=== PATIENT | female | born 1985 | race Caucasian/White ===

== ENCOUNTER 2017-10-18 19:18 | Emergency (ER) | payer OTHER ==
--- NOTE | 2017-10-18 19:40 | CPEKG ---
Heart Rate: 98 RR Interval: 612 P-R Interval: 148 QRSD Interval: 82 QT Interval: 332 QTC Interval: 424 P [place]: 81 QRS [place]: 42 T Wave [place]: 24 EKG Severity - BORDERLINE ECG - EKG Impression: SINUS RHYTHM EKG Impression: INFERIOR Q WAVES, PROBABLY NORMAL VARIATION Electronically Signed By: Shashank Choudhury 18-Oct-2017 20:23:13
[2017-10-18] MEDS ORDERED: HYDROmorphONE/DILAUDID 2 MG/ML INJ IVP ONE (19:53)
[2017-10-18] MEDS ORDERED: ACETAMINOPHEN 325 MG TAB PO ONE (19:53)
[2017-10-18] MEDS ORDERED: KETOROLAC 30 MG/1 ML SDV IVP ONE (19:53)
--- NOTE | 2017-10-18 19:56 | EDPHY ---
H & P Time Seen by Provider: 10/18/17 19:36 HPI/ROS: CHIEF COMPLAINT: Bilateral neck pain HISTORY OF PRESENT ILLNESS: Patient started working out with weights about a week and half ago. Approximately 6 days ago started getting pain in the back of her neck radiating to both ears and then around to the front of her neck and jaw. She had a massage and felt a lot better on Saturday and Saturday and in fact was relatively asymptomatic , but then yesterday afternoon symptoms came back. Since then she has had bilateral neck pain which radiates anteriorly to her front of her neck and jaw. Severe and worse with palpation but not really affected by motion. No stiff neck. No weakness or numbness in arms associated. It radiates down into her anterior chest and she says it feels muscular. Symptoms severe tonight and not affected by Motrin that she took around mid day. No dental symptoms, no trouble breathing or swallowing. Her bilateral ear pain is a little bit better now. REVIEW OF SYSTEMS: Eye: no change in vision ENT: no sore throat Cardiac: no chest pain or syncope Pulmonary: no cough or SOB Abdomen: no vomiting, diarrhea, abdominal pain Musculoskeletal: HPI Skin: no rash or zoster Neuro: no headache, she definitely says that her pain is all below her head. No frontal forehead or pain in her cheek. Constitutional: no fever : no urinary symptoms A comprehensive 10 point review of systems is otherwise negative aside from elements mentioned in the history of present illness. PAST MEDICAL HISTORY: Negative, has a [id number] Social history: Here with mom, no IV drugs General Appearance: Alert and conversant, cooperative. Eyes: No scleral icterus. Pupils equal and reactive extraocular motion intact. No proptosis. No periorbital swelling. ENT, Mouth: Normal mucous membranes. No trismus. Normal pharynx. Uvula midline. No sinus tenderness to palpation. No facial redness or swelling. Normal tympanic membranes bilaterally. Respiratory: Normal respiratory effort, breath sounds equal, lungs are clear to auscultation. Cardiovascular: Regular rate and rhythm. Gastrointestinal: Abdomen is soft and non tender. Neurological: Alert, face symmetric, normal motor and sensory in extremities. 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 Skin: Warm and dry, no rashes. No evidence of redness or zoster. Musculoskeletal: No meningeal signs or neck stiffness, good forward range of motion. She does have significant muscular tenderness to palpation in both trapezius areas. Psychiatric: Not agitated. Emergency Department course/MDM: I-STAT and CT angio for dissection discussed and consented with severity of symptoms. I think it is unlikely that she has tonsillitis or retropharyngeal abscess, epiglottitis, meningitis, acute coronary syndrome, sinusitis, otitis media, subarachnoid hemorrhage. Dilaudid 0.5, Toradol 15, Tylenol 650. Patient said she had a particularly bad wave of pain causing nausea and lightheadedness at this time vital signs were taken and I think that the blood pressure being low is more likely vasovagal, she was also diaphoretic on arrival. 2123: CT reviewed with Felipe, has thymus versus mediastinal venous hemorrhage otherwise negative. Does not have dissection or any other neck abnormality. 7: Case discussed, and images reviewed with Ko CT surgery on computer system. His opinion is more likely to be thymus, no action or further imaging recommended. Vasculature normal, no reason or source seen for bleeding. Results discussed in detail at this time, I recommend symptomatic treatment and outpatient follow-up, she does feel better pain is not completely gone but she is in agreement with the plan. Smoking Status: Never smoked Constitutional: Initial Vital Signs Temperature (C) 36.5 C 10/18/17 19:27 Heart Rate 81 10/18/17 19:27 Respiratory Rate 16 10/18/17 19:27 Blood Pressure 75/33 L 10/18/17 19:27 O2 Sat (%) 100 10/18/17 19:27 O2 Delivery Mode Room Air Allergies/Adverse Reactions: No Known Allergies Allergy (Unverified 10/18/17 19:31) Home Medications: Medication Instructions Recorded Cryselle-28 Tablet 10/18/17 oxyCODONE/APAP 5/325 [Percocet] 1 tab PO Q4-6PRN PRN #7 tab 10/18/17 Medical Decision Making - Diagnostics EKG Interpretation: 12-lead EKG interpreted by me; official reading is in trace master. My interpretation is sinus rhythm rate 98 with inferior Q-waves noted, no ischemic changes. Imaging Results: Imaging Impressions Neck CTA 10/18/17 20:14 Impression: 1. Amorphous soft tissue density in the superior mediastinum which could related to thymus or less likely hematoma. 2. No acute vascular findings. Stenoses are calculated using [place] Symptomatic Carotid Endarterectomy Trial (NASCET) criteria. Findings discussed with RADHA DODOSN 10/18/2017 at 21:26. - Data Points Laboratory Results: 10/18/17 19:58 POC Hgb 14.3 gm/dL gm/dL (12.6-16.3) POC Hct 42 % % (38-47) POC Sodium 139 mEq/L mEq/L (135-145) POC Potassium 3.6 mEq/L mEq/L (3.3-5.0) POC Chloride 101 mEq/L mEq/L (97-110) POC BUN 7 mg/dL mg/dL (7-23) POC Creatinine 0.9 mg/dL mg/dL (0.6-1.0) POC Glucose 114 mg/dL H mg/dL (70-100) Medications Given: Discontinued Medications Acetaminophen (Tylenol) 650 mg PO EDNOW ONE Stop: 10/18/17 19:54 Last Admin: 10/18/17 20:31 Dose: 650 mg Hydromorphone HCl (Dilaudid) 0.5 mg IVP EDNOW ONE Stop: 10/18/17 19:54 Last Admin: 10/18/17 20:31 Dose: 0.5 mg Sodium Chloride (Ns) 1,000 mls @ 0 mls/hr IV EDNOW ONE; Wide Open PRN Reason: Protocol Stop: 10/18/17 19:59 Last Admin: 10/18/17 20:30 Dose: 1,000 mls Sodium Chloride (Ns) 1,000 mls @ 0 mls/hr IV EDNOW ONE; Wide Open PRN Reason: Protocol Stop: 10/18/17 19:59 Last Admin: 10/18/17 20:30 Dose: 1,000 mls Ketorolac Tromethamine (Toradol) 15 mg IVP EDNOW ONE Stop: 10/18/17 19:54 Last Admin: 10/18/17 20:31 Dose: 15 mg Oxycodone/Acetaminophen (Percocet 5/325mg Prepack#4) 1 btl TAKEHOME EDNOW ONE Stop: 10/18/17 21:42 Last Admin: 10/18/17 21:52 Dose: 1 btl Point of Care Test Results: Chemistry 10/18/17 19:58 POC Sodium 139 mEq/L mEq/L (135-145) POC Potassium 3.6 mEq/L mEq/L (3.3-5.0) POC Chloride 101 mEq/L mEq/L (97-110) POC BUN 7 mg/dL mg/dL (7-23) POC Creatinine 0.9 mg/dL mg/dL (0.6-1.0) POC Glucose 114 mg/dL H mg/dL (70-100) ISTAT H&H 10/18/17 19:58 POC Hgb 14.3 gm/dL gm/dL (12.6-16.3) POC Hct 42 % % (38-47) Departure - Departure Disposition: Home, Routine, Self-Care Clinical Impression: Neck pain Condition: Good Instructions: Oxycodone/Acetaminophen (By mouth), Neck Pain (ED), Acute Neck Pain (ED) Additional Instructions: Oral ibuprofen 600 mg every 8 hr for the next 3-4 days. Please return immediately for worsening or severe pain, fever, any weakness or numbness in her arms. Referrals: NONE *PRIMARY CARE P,. [Primary Care Provider] - As per Instructions (Please see your doctor on Saturday or Saturday if you are not feeling better your PCP in [place]) Prescriptions: oxyCODONE/APAP 5/325 [Percocet] 1 tab PO Q4-6PRN PRN #7 tab PRN Reason: Pain
[2017-10-18] MEDS ORDERED: NS 1,000 ML IV ONE ×2 (19:58)
[2017-10-18] MEDS ORDERED: IOPAMIDOL (ISOVUE 370) 100 ML BTL IV ONE (20:30)
[2017-10-18] MEDS ORDERED: OXYCODONE/APAP 5/325MG PREPACK#4 BTL TAKEHOME ONE (21:41)
[2017-10-18 22:00] VITALS: BP 91/54
== END 2017-10-18 21:59 | disposition home or self-care (01) ==
DX: M54.2 Cervicalgia (principal); E86.9 Volume depletion, unspecified
CPT/HCPCS: 82435-PO; 82565-PO; 82947-PO; 84132-PO; 84295-PO; 84520-PO; 85014-PO; 96374; J1170; J1885; Q9967